=== PATIENT | female | born 1970 ===

== ENCOUNTER 2020-11-28 19:49 | Emergency (ER) | payer OTHER ==
[~2020-11-28] VITALS: Ht 160 cm; Wt 82.5 kg
[2020-11-29] MEDS ORDERED: BENZ100A PO (00:49)
[2020-11-29] MEDS ORDERED: CEPH500 PO (01:23)
== END 2020-11-29 01:55 | disposition home or self-care (01) ==
LOC: ER 19:49
DX: J18.9 Pneumonia, unspecified organism (principal); N39.0 Urinary tract infection, site not specified; Z79.899 Other long term (current) drug therapy
CPT/HCPCS: 74176; 87077; 87086; 87186; 99284-25